=== PATIENT | female | born 1940 | race Caucasian/White ===

== ENCOUNTER 2020-05-16 21:52 | Inpatient (IN) | payer MEDICARE, OTHER ==
[~2020-05-16] VITALS: Ht 172.7 cm; Wt 65.8 kg
[2020-05-16] MEDS ORDERED: ATEN50TA PO (22:00)
[2020-05-16] MEDS ORDERED: DULO60CA64 PO (22:00)
[2020-05-16] MEDS ORDERED: HYDR25TA4 PO (22:00)
[2020-05-16] MEDS ORDERED: PROP20TA7 PO (22:00)
[2020-05-16] MEDS ORDERED: PRED-170 PO (22:00)
[2020-05-16] MEDS ORDERED: diphenhydrAMINE 50 MG/1 ML VIAL IV ONE (22:15)
[2020-05-16] MEDS ORDERED: HYDROMORPHONE 1 MG/1 ML DISP.SYRIN IV ONE ×2 (22:15→22:45)
[2020-05-16] MEDS ORDERED: ONDANSETRON 4 MG/2 ML VIAL IV ONE (22:15)
[2020-05-16] MEDS ORDERED: ONDANSETRON 4 MG/2 ML VIAL ONE (22:19)
[2020-05-16] MEDS ORDERED: diphenhydrAMINE 50 MG/1 ML VIAL ONE (22:19)
[2020-05-16] MEDS ORDERED: HYDROMORPHONE 1 MG/1 ML DISP.SYRIN ONE ×2 (22:19→22:44)
--- NOTE | 2020-05-16 22:22 | NUR ---
IV PLACED, DILUADID ADMINISTERED, EKD DONE, MONITOR SHOWS NSR, PO2=94% ON ROOMAIR, PTS DAUGHTER AT BEDSIDE, AWAITING FOR RADIOLOGY.
[2020-05-16] MEDS ORDERED: IV NORMAL SALINE 1000 ML BAG IV ONE (22:30)
[2020-05-16 22:37] LABS: BASOPHILS # (AUTO) 0.1 K/uL (0.0-8.0); BASOPHILS % (AUTO) 0.6 % (0.0-2.0); EOSINOPHILS # (AUTO) 0.1 K/uL (0.0-0.7); EOSINOPHILS % (AUTO) 0.9 % (0.0-7.0); HEMATOCRIT 39.8 % (31.2-41.9); HEMOGLOBIN 13.2 g/dL (10.9-14.3); LYMPHOCYTES % (AUTO) 16.9 % (20.5-51.5); MEAN CORPUSCULAR HEMOGLOBIN 29.6 uug (24.7-32.8); MEAN CORPUSCULAR HGB CONC 33 g/dL (32.3-35.6); MEAN CORPUSCULAR VOLUME 89.5 fL (75.5-95.3); MONOCYTES # (AUTO) 0.7 K/uL (2.0-10.0); MONOCYTES % (AUTO) 6.2 % (0.0-11.0); NEUTROPHILS # (AUTO) 8.9 K/uL (1.8-8.9); NEUTROPHILS % (AUTO) 75.4 % (38.5-71.5); PLATELET COUNT (AUTO) 404 K/uL (179-408); RED BLOOD CELL COUNT(AUTO) 4.45 MIL/uL (3.63-4.92); WHITE BLOOD COUNT (AUTO) 11.7 K/uL (3.8-11.8)
[2020-05-16] MEDS ORDERED: IV NS 1000 ML 1,000 ML IV ONE (22:45)
[2020-05-16 22:46] LABS: CREATININE 0.9 mg/dL (0.6-1.3); POTASSIUM 3.3 mmol/L (3.5-5.1)
[2020-05-16 22:52] LABS: BILIRUBIN,DIRECT 0.2 mg/dL (0.0-0.2); TOTAL PROTEIN, SERUM 7.2 g/dL (6.4-8.2)
[2020-05-16] MEDS ORDERED: IV D5W-0.45% NS +20 KCL 1,000 ML IV ONE (23:00)
--- NOTE | 2020-05-16 23:08 | NUR ---
ZIYAD JACOBSON ART DIRECTOR SEISMIC PROSPECTING SUPERVISOR FOR [employer] SPEAKING WITH DR NEWBY.
[2020-05-16] MEDS ORDERED: MORPHINE SULFATE 2 MG/1 ML DISP.SYRIN IV PRN (23:45)
[2020-05-16] MEDS ORDERED: MAGNESIUM HYDROXIDE 30 ML LIQUID UDC PO PRN (23:45)
[2020-05-16] MEDS ORDERED: ACETAMINOPHEN 325 MG TABLET PO PRN (23:45)
[2020-05-16] MEDS ORDERED: HYDROCODONE/APAP 5-325MG TABLET PO PRN (23:45)
[2020-05-16] MEDS ORDERED: ONDANSETRON 4 MG/2 ML VIAL IV PRN (23:45)
[2020-05-16] MEDS ORDERED: Z GUARD REMEDY PASTE 57 GM TUBE TOP PRN (23:45)
--- NOTE | 2020-05-16 23:55 | NUR ---
PT PRESENTLY RECEIVING D5/1/2NS/20MEQ KCL VIA IV PUMP AND 0.9 NS VIA IV PUMP. PT POSITIONED FOR COMFORT, AWAITING MED/SURG BED.
--- NOTE | 2020-05-17 02:06 | NUR ---
PT SLEEPING, EYES CLOSED, AWITING FOR MED/SURG/COVID ROOM TO BE AVAILABLE.
--- NOTE | 2020-05-17 03:47 | NUR ---
PT SLEEPING , EYES CLOSED, NO DISTRESS NOTED, AWAITING FOR MED/SURG BED.
[2020-05-17] MEDS: HYDROMORPHONE 1 MG/1 ML DISP.SYRIN IV PRN ×3 (04:59→22:38)
[2020-05-17] MEDS ORDERED: HYDROMORPHONE 1 MG/1 ML DISP.SYRIN ONE ×2 (05:00→12:15)
--- NOTE | 2020-05-17 07:02 | NUR ---
PT SLEEPING, EYES CLOSED, NO DISTRESS NOTED, SBAR REPORT TO MARY BETH VALVERDE.
[2020-05-17] MEDS ORDERED: PROPRANOLOL HCL 20 MG TABLET PO SCH (09:00)
--- NOTE | 2020-05-17 09:32 | NUR ---
Dr Acosta called back. He is going to contact to Nursing Pharmacy Technician Trainee to shedule pt's surgery.
[2020-05-17 10:01] LABS: BASOPHILS # (AUTO) 0.1 K/uL (0.0-8.0); BASOPHILS % (AUTO) 0.7 % (0.0-2.0); EOSINOPHILS # (AUTO) 0.3 K/uL (0.0-0.7); EOSINOPHILS % (AUTO) 2.6 % (0.0-7.0); HEMOGLOBIN 11.7 g/dL (10.9-14.3); LYMPHOCYTES # (AUTO) 1.5 K/uL (20.0-40.0); LYMPHOCYTES % (AUTO) 12.4 % (20.5-51.5); MEAN CORPUSCULAR HEMOGLOBIN 29.9 uug (24.7-32.8); MEAN CORPUSCULAR HGB CONC 33 g/dL (32.3-35.6); MEAN CORPUSCULAR VOLUME 89.5 fL (75.5-95.3); MONOCYTES # (AUTO) 0.9 K/uL (2.0-10.0); MONOCYTES % (AUTO) 7.6 % (0.0-11.0); NEUTROPHILS # (AUTO) 9.4 K/uL (1.8-8.9); NEUTROPHILS % (AUTO) 76.7 % (38.5-71.5); PLATELET COUNT (AUTO) 339 K/uL (179-408); RED BLOOD CELL COUNT(AUTO) 3.92 MIL/uL (3.63-4.92); WHITE BLOOD COUNT (AUTO) 12.3 K/uL (3.8-11.8)
[2020-05-17 10:11] LABS: CREATININE 0.7 mg/dL (0.6-1.3); POTASSIUM 3.6 mmol/L (3.5-5.1)
[2020-05-17 10:15] LABS: MAGNESIUM 1.4 mg/dL (1.8-2.4); PHOSPHOROUS 3.4 mg/dL (2.5-4.9)
[2020-05-17] MEDS: DULOXETINE 60 MG CAPSULE.DR PO SCH (10:46)
[2020-05-17] MEDS: HYDROCHLOROTHIAZIDE 25 MG TABLET PO SCH (10:47)
[2020-05-17] MEDS: ATENOLOL 50 MG TABLET PO SCH (11:01)
[2020-05-17] MEDS: IV 0.9% SODIUM CHLORID+ 20 KCL 1,000 ML IV PRN ×2 (12:23→22:40)
[2020-05-17] MEDS ORDERED: IV 0.9% SODIUM CHLORID+ 20 KCL 1,000 ML ONE (12:36)
--- NOTE | 2020-05-17 17:41 | NUR ---
REPORT WAS GIVEN TO GRAPHIC MANAGER . PT WAS TRANSFERED TO ROOM #321.
[2020-05-17 20:00] VITALS: BP 156/61
[2020-05-18 00:52] VITALS: BP 126/52
[2020-05-18] MEDS: HYDROMORPHONE 1 MG/1 ML DISP.SYRIN IV PRN (03:58)
[2020-05-18 04:00] VITALS: BP 123/37
[2020-05-18] MEDS: DULOXETINE 60 MG CAPSULE.DR PO SCH (09:39)
[2020-05-18] MEDS: HYDROCHLOROTHIAZIDE 25 MG TABLET PO SCH (09:40)
[2020-05-18] MEDS: ATENOLOL 50 MG TABLET PO SCH (09:41)
--- NOTE | 2020-05-18 09:47 | NUR ---
CALL RECEIVED FROM THE RN HOUSEMAN AND SHE STATED THAT PATIENTS SURGERY HAS BEEN SCHEDULED FOR TOMORROW AT 1030 AM PATIENT AWARE WILL GIVE HER BFAST SINCE SHE HAS BEEN NPO
[2020-05-18 11:17] VITALS: BP 138/51
--- NOTE | 2020-05-18 11:36 | NUR ---
ORDERS PLACED PER DR THOMAS FOR TYPE/SCREEN ,CBC ,PT/PTT AND NOTED
[2020-05-18] MEDS ORDERED: POTASSIUM CHLORIDE 20 MEQ TAB.PRT.SR PO ONE (14:00)
--- NOTE | 2020-05-18 14:30 | NUR ---
PATIENT IS CONFUSED AND DISORIENTED AT THIS TIME PULLED OUT HER HEPLOCK WANTS THE AMBULANCE AND POLICE CALLED REORIENTED AND REDIRECTED A NEW HEPLOCK REPLACED TO HER RIGHT ARM GAUGE 20 AND CONTINUED WITH IVF ORDERED.
[2020-05-18] MEDS: MAGNESIUM SULFATE/D5W 100 ML IV SCH ×2 (14:35→15:45)
--- NOTE | 2020-05-18 14:59 | NUR ---
DR JIMENEZ BOOK PACKER HERE SEEN PATIENT WITH ORDER TO REPLACE MAGNESSIUM AND POTASSIUM FROM 05/17 LABS NO LABS TODAY AND NOTED.
--- NOTE | 2020-05-18 15:13 | NUR ---
PATIENT SEEN BY ZIYAD JACOBSON RECORD CUTTER WITH NEW ORDERS SHE IS AWARE THAT PATIENT HAS BEEN CONFUSED WANTING TO CALL THE AMBULANCE AND THE POLICE AND AMARO INSERTION .
[2020-05-18] MEDS ORDERED: diphenhydrAMINE 25 MG/10 ML UDC NG PRN (15:15)
[2020-05-18 15:22] VITALS: BP 102/69
[2020-05-18 15:43] LABS: *BILIRUBIN,URIN NEGATIVE (NEGATIVE); *CLARITY,URINE SLIGHTLY CLOUDY (CLEAR); *COLOR,URINE YELLOW (YELLOW); *KETONES,URINE NEGATIVE (NEGATIVE); *UROBILINOGEN,URINE 0.2 E.U./dl (NORMAL); LEUKOCYTE ESTERASE ,URINE 2+ (NEGATIVE); NITRITE, URINE NEGATIVE (NEGATIVE); PH,URINE 5.5 (5.0-8.0); UGLUCOSE NEGATIVE (NEGATIVE)
[2020-05-18 15:44] LABS: *BLOOD, URINE TRACE (NEGATIVE)
[2020-05-18] MEDS: IV 0.9% SODIUM CHLORID+ 20 KCL 1,000 ML IV PRN (17:24)
[2020-05-18 17:40] LABS: BACTERIA,URINE MA /HPF (NONE SEEN); MUCUS,URINE FEW /LPF (0-FEW); SQUAMOUS EPITHELIAL CELL,UR FEW /HPF (NONE SEEN); URINE AMORPHOUS URATE FEW /HPF; WBC,URINE 20-50 /HPF (0-3)
--- NOTE | 2020-05-18 18:00 | NUR ---
PATIENT IN BED RESTING REFUSED DINNER BUT ABLE TO DRINK HER LIQUIDS REMAIN ON IVF ORDERED WITH NO S/S OF INFILTERATION ON SITE PATIENT REMAINS CONFUSED AT THIS TIME BUT IS EASILY REDIRECTABLE MADE COMFORTABLE WILL CONTINUE TO OBSERVE AND PROVIDE COMFORT
[2020-05-18] MEDS ORDERED: CEFTRIAXONE 1 G VIAL IV SCH (18:30)
[2020-05-18] MEDS ORDERED: CEFTRIAXONE 1 G in IV DEXTROSE 5% 50 ML IV SCH (20:00)
[2020-05-18 20:56] VITALS: BP 127/41
--- NOTE | 2020-05-18 21:31 | NUR ---
Received pt resting in bed. AAO X2, noted pt to be confused, able to redirect. No acute distress noted. Denies pain/ discomfort. Pt refused lab at this time, as per pt she prefers it to be done tomorrow. Pt aware of her surgery tomorrow. Provided education about the importance of lab type and screen for her surgery tomorrow. IVF running at 75 cc/ hr. Administered due Rocephin. Safety measures maintained. Call light and personal items within reach. Will continue to monitor. Addendum: 05/18/20 at 2214 by Steph Urena RN pt removing oxygen, no acute distress noted, will continue to monitor
[2020-05-19] VITALS (8 sets, daily range): BP systolic 104–146; BP diastolic 37–61
--- NOTE | 2020-05-19 07:11 | NUR ---
Preop checklist done. Pt has 3 bracelets and 1 watch, reported to oncoming shift. All needs attended to promptly. Kept NPO after midnight. Endorsed to oncoming shift accordingly.
[2020-05-19] MEDS: IV 0.9% SODIUM CHLORID+ 20 KCL 1,000 ML IV PRN (07:49)
[2020-05-19 07:50] LABS: BASOPHILS % (AUTO) 0.2 % (0.0-2.0); EOSINOPHILS # (AUTO) 0.2 K/uL (0.0-0.7); EOSINOPHILS % (AUTO) 1.4 % (0.0-7.0); HEMATOCRIT 35.4 % (31.2-41.9); HEMOGLOBIN 11.8 g/dL (10.9-14.3); LYMPHOCYTES # (AUTO) 1.3 K/uL (20.0-40.0); LYMPHOCYTES % (AUTO) 9.3 % (20.5-51.5); MEAN CORPUSCULAR HEMOGLOBIN 29.9 uug (24.7-32.8); MEAN CORPUSCULAR HGB CONC 33 g/dL (32.3-35.6); MONOCYTES % (AUTO) 7.6 % (0.0-11.0); NEUTROPHILS % (AUTO) 81.5 % (38.5-71.5); PLATELET COUNT (AUTO) 353 K/uL (179-408); RED BLOOD CELL COUNT(AUTO) 3.93 MIL/uL (3.63-4.92); WHITE BLOOD COUNT (AUTO) 13.5 K/uL (3.8-11.8)
--- NOTE | 2020-05-19 07:50 | NUR ---
RECEIVED PATIENT IN BED SHE IS CONFUSED AND DISORIENTED PRE OP TEACHING IN PROGRESS AT THIS TIME SHE IS NPO FOR THE PENDING SURGERY IVF REMAINS IN PROGRESS ORDERED WITH NO S/S OF INFILTERATION AT THIS TIME AMARO CATH TO GRAVITY DRAINAGE REORIENTED AND MADE COMFORTABLE WILL CONTINUE TO OBSERVE.
[2020-05-19 07:58] LABS: CREATININE 0.7 mg/dL (0.6-1.3); MAGNESIUM 1.6 mg/dL (1.8-2.4); PHOSPHOROUS 2.2 mg/dL (2.5-4.9); POTASSIUM 3.6 mmol/L (3.5-5.1)
[2020-05-19] MEDS: DULOXETINE 60 MG CAPSULE.DR PO SCH (08:47)
[2020-05-19] MEDS: HYDROCHLOROTHIAZIDE 25 MG TABLET PO SCH (08:47)
[2020-05-19] MEDS: ATENOLOL 50 MG TABLET PO SCH (08:47)
[2020-05-19] MEDS ORDERED: MIDAZOLAM HCL 2 MG/2 ML VIAL ONE (09:26)
[2020-05-19] MEDS ORDERED: FENTANYL CITRATE 250 MCG/5 ML AMPUL ONE (09:26)
[2020-05-19] MEDS ORDERED: HYDROMORPHONE 2 MG/1 ML DISP.SYRIN ONE (09:27)
[2020-05-19] MEDS ORDERED: ROCURONIUM BROMIDE 50 MG/5 ML VIAL ONE (09:28)
[2020-05-19] MEDS ORDERED: POLYMYXIN B SULFATE 500,000 UNITS, BACITRACIN 50,000 UNITS, NORMAL SALINE 20 ML MC ONE ×3 (09:30)
[2020-05-19] MEDS ORDERED: BUPIVACAINE/EPI PF 0.5% 10 ML VIAL ONE (09:33)
[2020-05-19] MEDS ORDERED: VANCOMYCIN HCL 500 MG VIAL ONE (09:33)
--- NOTE | 2020-05-19 10:12 | NUR ---
PATIENT PICKED UP BY BED TO SURGERY FOR SCHEDULED HIP SURGERY AT FIRST PATIENT WAS REFUSING TO GO FOR THE SURGERY THEN HER DAUGHTER ELIECER WAS CALLED AND AFTER SHE SPOKE WITH THE PATIENT SHE RELUCTANTLY AGREED TO GO HER ATENOLOL WAS GIVEN WITH A SIP OF WATER AT 0845
[2020-05-19] MEDS ORDERED: IV D5W-0.45% NS +20 KCL 1,000 ML IV ONE (12:10)
--- NOTE | 2020-05-19 13:00 | NUR ---
PATIENT RETURNED [facility] BY BED SOMEWHAT SLEEPY BUT ALERT TO SELF WHEN SPOKEN TO SHE IS ON O2 AT 2L/M BY NASAL CANULLA WITH NO SOB AT THIS TIME RIGHT FOREARM WITH IVF INFUSING ORDERED A BAG OF D5I/2 NS PLUS 20 WAS BROUGHT HERE BY PACU LEFT HIP WITH DRESSING DRY AND INTACT WITH ICE PACK ABD PILLOW IN USE CIRCULATION HAS BEEN ADEQUATE AND PATIENT IS ABLE TO WIGGLE TOES DVT PUMP IS IN USE AMARO CATH TO GRAVITY DRAINAGE PATIENT MADE COMFORTABLE WILL CONTINUE TO OBSERVE.
[2020-05-19] MEDS ORDERED: MORPHINE SULFATE 2 MG/1 ML DISP.SYRIN IV PRN (13:45)
[2020-05-19] MEDS: POTASSIUM CHLORIDE 20 MEQ in IV D5 1/2 NS 1000 ML 1,000 ML IV PRN (13:48)
[2020-05-19] MEDS: VANCOMYCIN IV 750 MG in IV DEXTROSE 5% 250 ML IV SCH (13:48)
--- NOTE | 2020-05-19 14:00 | NUR ---
PATIENT IS AWAKE OFFERED HER SOME WATER AND JUICE REFUSED AT THIS TIME CONTINUE ON IV ATB ORDERED WITH NO ADVERSE OR ALLERGIC REACTIONS AT THIS TIME WILL CONTINUE TO OBSERVE.
--- NOTE | 2020-05-19 14:36 | NUR ---
PER TMS PATIENT HAS AN ORDER FOR ANCEF BUT THE PHARMACIST QUINCY STATED THAT SINCE PATIENT IS ALSO ON VANCOMICIN THAT HE ALREADY SPOKE WITH ZIYAD WHO OKAYED TO STOP THE ANCEF.
[2020-05-19] MEDS ORDERED: NEUTRA PHOS PACKET PO ONE (16:45)
[2020-05-19] MEDS: MAGNESIUM SULFATE/D5W 100 ML IV SCH ×2 (17:31→18:26)
--- NOTE | 2020-05-19 18:00 | NUR ---
MORE AWAKE GAVE HER JELLO AND SHE ATE DRANK SOME WATER APPETITE FOR DINNER WAS POOR DENIES NAUSEA ALERT DENIES DISCOMFORTS LEFT HIP WITH ICE PACK WITH DRESSING INTACT MADE COMFORTABLE MAG REPLACEMENT GIVEN ORDERED LEVEL WAS 1.6 AND PHOS 2.2.
--- NOTE | 2020-05-19 19:30 | NUR ---
PATIENTS JEWELRY CONSISTING OF A YELLOW COLORED METAL WATCH AND 3 YELLOW COLORED METAL BRACELETS WHICH WAS REMOVED FROM THE PATIENT PRIOR TO SURGERY WAS RETURNED TO PATIENT AT THIS TIME WITHNESSED BY [employer] THE INSPECTOR SOLDERING PATIENT WAS HAPPY TO RECEIVE THEM BACK.
[2020-05-19] MEDS: CEFAZOLIN 1 G in IV DEXTROSE 5% 50 ML IV SCH (20:42)
[2020-05-20] VITALS (11 sets, daily range): BP systolic 106–150; BP diastolic 43–70
--- NOTE | 2020-05-20 01:00 | NUR ---
ICE PACK REPLENISHED AND APPLIED TO HER LEFT HIP WITH SURGICAL DRESSING DRY AND INTACT WITH ABDUCTION PILLOW AND HIP PRECAUTION PROTOCOL ORDERED CIRCULATION IS ADEQUATE DENIES PAIN OR DISCOMFORTS AT THIS TIME TURNED AND REPOSITIONED WITH PILLOWS APPLIED FOR COMFORT SHE IS STILL ON O2 WITH SATS AT 94 PERCENT INCENTIVE SPIROMETER ENCOURAGED PATIENT WAS EDUCATED EARLIER IVF AND IV ANTIBIOTICS IN PROGRESS ORDERED WITH NO ADVERSE OR ALLERGIC REACTIONS AT THIS TIME WILL CONTINUE TO OBSERVE.
[2020-05-20] MEDS: VANCOMYCIN IV 750 MG in IV DEXTROSE 5% 250 ML IV SCH ×2 (01:06→15:03)
[2020-05-20] MEDS: CEFAZOLIN 1 G in IV DEXTROSE 5% 50 ML IV SCH (03:50)
[2020-05-20] MEDS: POTASSIUM CHLORIDE 20 MEQ in IV D5 1/2 NS 1000 ML 1,000 ML IV PRN ×2 (06:06→21:20)
[2020-05-20 06:33] LABS: BASOPHILS % (AUTO) 0.2 % (0.0-2.0); HEMOGLOBIN 10.8 g/dL (10.9-14.3); LYMPHOCYTES # (AUTO) 0.5 K/uL (20.0-40.0); LYMPHOCYTES % (AUTO) 3.5 % (20.5-51.5); MEAN CORPUSCULAR HEMOGLOBIN 30.3 uug (24.7-32.8); MEAN CORPUSCULAR HGB CONC 34 g/dL (32.3-35.6); MEAN CORPUSCULAR VOLUME 90.1 fL (75.5-95.3); MONOCYTES # (AUTO) 1.2 K/uL (2.0-10.0); MONOCYTES % (AUTO) 7.9 % (0.0-11.0); NEUTROPHILS # (AUTO) 13.7 K/uL (1.8-8.9); NEUTROPHILS % (AUTO) 88.4 % (38.5-71.5); PLATELET COUNT (AUTO) 395 K/uL (179-408); RED BLOOD CELL COUNT(AUTO) 3.55 MIL/uL (3.63-4.92); WHITE BLOOD COUNT (AUTO) 15.6 K/uL (3.8-11.8)
[2020-05-20 06:43] LABS: CREATININE 0.8 mg/dL (0.6-1.3); PHOSPHOROUS 2.6 mg/dL (2.5-4.9); POTASSIUM 3.9 mmol/L (3.5-5.1)
--- NOTE | 2020-05-20 06:51 | NUR ---
AWAKE CONTINUES TO DENY PAIN AT THIS TIME ABD PILLOW IS IN PLACE LEFT HIP DRESSING IS CLEAN DRY AND INTACT WILL CONTINUE TO OBSERVE.
--- NOTE | 2020-05-20 07:30 | NUR ---
Received patient in bed alert and oriented times 3-4. No sign of distress notes at this time. Patient denies any pain. Patient has Moffett and is draining urine, Safety precautions in place with call light and belongings within reach. Will continue to monitor.
[2020-05-20] MEDS: DULOXETINE 60 MG CAPSULE.DR PO SCH (08:46)
[2020-05-20] MEDS: HYDROCHLOROTHIAZIDE 25 MG TABLET PO SCH (08:49)
[2020-05-20] MEDS: ATENOLOL 50 MG TABLET PO SCH (08:50)
[2020-05-20] MEDS ORDERED: ZOLPIDEM 5 MG TABLET PO PRN (11:45)
--- NOTE | 2020-05-20 19:46 | NUR ---
Patient endorsement to ABRAM Haskins. Oscar Mirza RN
[2020-05-21] MEDS: VANCOMYCIN IV 750 MG in IV DEXTROSE 5% 250 ML IV SCH ×2 (00:31→12:32)
[2020-05-21 04:00] VITALS: BP 140/67
--- NOTE | 2020-05-21 06:44 | NUR ---
Slept well throughout the shift. AAOx2-3 Needs attended. Kept comfortable. IVF's infusing well. Repositioned for comfort.Turned to sides. Left hip dressing clean dry and intact. Denies any pain at this time. Moffett catheter intact draining yellow urine. I & O monitor. Abduction pillow in between legs. Kept comfortable. VSS. No acute distress noted. Fall precautions maintained. Siderails up for safety.
[2020-05-21 07:50] LABS: CREATININE 0.7 mg/dL (0.6-1.3); POTASSIUM 3.6 mmol/L (3.5-5.1)
[2020-05-21 08:00] LABS: BASOPHILS % (AUTO) 0.2 % (0.0-2.0); EOSINOPHILS # (AUTO) 0.3 K/uL (0.0-0.7); EOSINOPHILS % (AUTO) 2.9 % (0.0-7.0); HEMATOCRIT 30.9 % (31.2-41.9); HEMOGLOBIN 10.4 g/dL (10.9-14.3); LYMPHOCYTES # (AUTO) 1.5 K/uL (20.0-40.0); LYMPHOCYTES % (AUTO) 13.3 % (20.5-51.5); MEAN CORPUSCULAR HEMOGLOBIN 30.1 uug (24.7-32.8); MEAN CORPUSCULAR HGB CONC 34 g/dL (32.3-35.6); MEAN CORPUSCULAR VOLUME 89.8 fL (75.5-95.3); MONOCYTES # (AUTO) 1.3 K/uL (2.0-10.0); MONOCYTES % (AUTO) 12.1 % (0.0-11.0); NEUTROPHILS # (AUTO) 7.8 K/uL (1.8-8.9); NEUTROPHILS % (AUTO) 71.5 % (38.5-71.5); PLATELET COUNT (AUTO) 372 K/uL (179-408); RED BLOOD CELL COUNT(AUTO) 3.44 MIL/uL (3.63-4.92)
[2020-05-21] MEDS: DULOXETINE 60 MG CAPSULE.DR PO SCH (08:32)
[2020-05-21] MEDS: HYDROCHLOROTHIAZIDE 25 MG TABLET PO SCH (08:32)
[2020-05-21] MEDS: ATENOLOL 50 MG TABLET PO SCH (08:33)
[2020-05-21 11:00] VITALS: BP 139/59
[2020-05-21 15:28] VITALS: BP 143/64
--- NOTE | 2020-05-21 15:52 | NUR ---
dc folly catheter per md orders
--- NOTE | 2020-05-21 19:30 | NUR ---
Received patient in bed alert and oriented times 3-4. No sign of distress notes at this time. Patient denies any pain. Sated she is excited to be going home for the holidays. Safety precautions in place with call light and belongings within reach. Will continue to monitor.
--- NOTE | 2020-05-21 20:00 | NUR ---
Son called multiple times regarding discharge planning, he is aware waiting on doctors prescription for PO antibiotics.
[2020-05-21 20:30] VITALS: BP 145/69
[2020-05-21] MEDS ORDERED: SULF1TAB48 PO (20:49)
--- NOTE | 2020-05-21 22:20 | NUR ---
Discharge note: Pt is deemed stable by Dr. Goldman for tonight. Discharge order received plan to d/c home. ReceivedRx for med recon.Pt aware and agreeable on discharge. All pt belongings prepared, denies any missing belongings and refuses to take abductor pillow. D/c heplock 20G RFA. Skin assessment completed., no skin issues noted. Left hip dressing clean dry and intact. Spoke to the son once more, anxiously waiting for his mother to arrive home. Explained that ambulance is on the way. Ambulance arrived at 2208 Pt preferred to skip on skin photos. Discussed discharge instructions with pt, including medication prescription, follow up visit with surgeon to remove debbie when allowed.Pt verbalized understanding of d/c instructions. Discharge papers given to pt. Pt left the unit at 2215 in stable condition via [facility] ambulance picked up via [facility].
[2020-05-22] MEDS ORDERED: HYDR-4384 PO (09:11)
== END 2020-05-21 22:00 | disposition home health service (06) | DRG 521 ==
LOC: ER 22:00 → TRANSITION 23:30 → TELE3 05-17 16:50 → MEDSURG3 05-18 03:55
PROVIDERS: ADMIT Nurse Practitioner Acute Care; ATTEND Nurse Practitioner Acute Care
PROC: 0SRS0JA Replacement of Left Hip Joint, Femoral Surface with Synthetic Substitute, Uncemented, Open Approach (ICD-10-PCS; principal; 2020-05-19)
DX: S72.002A Fracture of unspecified part of neck of left femur, initial encounter for closed fracture (principal); G92 Toxic encephalopathy; E44.0 Moderate protein-calorie malnutrition; N39.0 Urinary tract infection, site not specified; E87.6 Hypokalemia; W19.XXXA Unspecified fall, initial encounter; M35.3 Polymyalgia rheumatica; I10 Essential (primary) hypertension; Z20.828 Contact with and (suspected) exposure to other viral communicable diseases; R55 Syncope and collapse; Y93.9 Activity, unspecified; Y92.89 Other specified places as the place of occurrence of the external cause; E88.09 Other disorders of plasma-protein metabolism, not elsewhere classified; Z68.22 Body mass index [BMI] 22.0-22.9, adult
CPT/HCPCS: 36415; 71045; 72170; 73501; 73502; 83735; 84100; 85025; 85730; 86850; 86900; 86901; 87086; 93005; A4649; A4663; C1776; G0378; J0690; J0696; J1170; J1200; J2250; J2405; J3010; J3370; J3475; J3480; J3490; J7030; J7060